=== PATIENT | female | born 1930 | race Caucasian/White ===

== ENCOUNTER 2016-04-28 14:53 | Emergency (ER) | payer MEDICARE, BC ==
[~2016-04-28] VITALS: Ht 152.4 cm; Wt 35.0 kg
[~2016-04-28 14:53] MED LIST: ASPIRIN 81M81 MG/TA2 PO; COLACE 100100 MG/CAP PO; DAZIDOX10 MG PO; FENTANYL 50MCG TD; IMDUR 30MG30 MG/TAB PO; LAMISIL250 M1 PO; LASIX 40MG TABL40 MG PO; MIRALAX PA17 GM/Dose PO; PRINIVIL10 MG PO; SYNTHROID 0.10.15 MG PO; TOPROL XL 50MG50 MG PO; TRIAMCINOLONE A15 GM TP; VIIBRYD40 MG PO; XANAX .25M0.25 MG/TA PO
[2016-04-28 14:55] VITALS: TEMP 98.7
[2016-04-28] MEDS ORDERED: LEXAPRO 10MG10 MG PO (15:14)
[2016-04-28] MEDS ORDERED: PREDNISONE10 MG PO (15:15)
[2016-04-28] MEDS ORDERED: PRILOSEC 20MG20 MG PO (15:18)
[2016-04-28 16:01] LABS: URINE APPEARANCE Hazy; URINE COLOR Yellow
[2016-04-28 16:02] LABS: PH 5 (5-8); URINE GLUCOSE Negative (NEGATIVE); URINE KETONE Negative (NEGATIVE)
[2016-04-28 16:03] LABS: URINE BILIRUBIN Positive (NEGATIVE); URINE BLOOD Negative (NEGATIVE)
[2016-04-28 16:04] LABS: URINE BACTERIA Rare /hpf; URINE WBC 0-2 /hpf
[2016-04-28 16:14] LABS: ADJUSTED CALCIUM 10.1 mg/dL (8.4-10.2); ALBUMIN 4.3 gm/dL (3.5-5.0); BILIRUBIN,TOTAL 0.5 mg/dL (0.0-1.0); CALCIUM 10.3 mg/dL (8.4-10.2); CREATININE, serum 1.05 mg/dL (0.52-1.25); POTASSIUM 4.6 mmol/L (3.4-5.0); TOTAL PROTEIN 7.8 gm/dL (6.4-8.2)
[2016-04-28 16:16] LABS: BASO # 0.1 (0.0-0.2); BASO % 0.4 % (0.0-2.0); EOS % 0.3 % (0-4.0); GRAN # 9.1 (1.4-6.5); GRAN % 80.7 % (42.2-75.2); HEMATOCRIT 41.3 % (37.0-47.0); HEMOGLOBIN 13.6 g/dl (12.5-16.0); LYMPH # 1.2 (1.2-3.4); LYMPH % 10.7 % (20.0-51.0); MEAN CELL VOLUME 96 fl (80.0-100.0); MEAN CORPUSCULAR HEMOGLOBIN 32 pg (27.0-31.0); MEAN CORPUSCULAR HGB CONC 33 g/dl (33.0-37.0); MEAN PLATELET VOLUME 10.8 fl (7.4-10.4); MONO # 0.8 (0.1-0.6); MONO % 7.3 % (1.7-9.3); PLATELET COUNT 384 K/mm3 (130-400); RED BLOOD COUNT 4.32 M/mm3 (4.10-5.30); REDCELL DISTRIBUTION WIDTH-CV 13.6 % (11.5-14.5); WHITE BLOOD COUNT 11.3 K/mm3 (4.8-10.8)
[2016-04-28] MEDS ORDERED: CIPRO 500MG TA500 MG PO (16:23)
[2016-04-28 16:50] VITALS: BP 135/95; PULSE 113
== END 2016-04-28 17:02 | disposition home or self-care (01) ==
LOC: COL.ER 14:53
PROVIDERS: Family Medicine
DX: M54.2 Cervicalgia (principal); N39.0 Urinary tract infection, site not specified; G89.29 Other chronic pain
CPT/HCPCS: J1170; J2550

== ENCOUNTER 2016-05-02 23:44 | Inpatient (IN) | payer MEDICARE, BC ==
[~2016-05-02] VITALS: Ht 152.4 cm; Wt 43.1 kg
[~2016-05-02 23:44] MED LIST changes: +CIPRO 500MG TA500 MG PO; +LEXAPRO 10MG10 MG PO; +PREDNISONE10 MG PO; +PRILOSEC 20MG20 MG PO
[2016-05-03] VITALS (136 sets, daily range): BP systolic 67–137; BP diastolic 32–118; PULSE 55–73; TEMP 97–99.1; O2SAT 44–100
[2016-05-03 01:41] LABS: PH 5 (5-8); URINE APPEARANCE Cloudy; URINE BACTERIA Rare /hpf; URINE BILIRUBIN Negative (NEGATIVE); URINE BLOOD 2+ (NEGATIVE); URINE COLOR Yellow; URINE GLUCOSE Negative (NEGATIVE); URINE KETONE Negative (NEGATIVE); URINE RBC 20-50 /hpf; URINE UROBILINOGEN Negative (NEGATIVE)
[2016-05-03] MEDS ORDERED: NEURONTIN100 MG/CAP PO (02:02)
[2016-05-03 02:04] LABS: BASO % 0.3 % (0.0-2.0); EOS # 0.1 (0.0-0.7); EOS % 1.4 % (0-4.0); LYMPH # 2.2 (1.2-3.4); LYMPH % 24.4 % (20.0-51.0); MEAN CELL VOLUME 100 fl (80.0-100.0); MEAN CORPUSCULAR HGB CONC 32 g/dl (33.0-37.0); MEAN PLATELET VOLUME 10.6 fl (7.4-10.4); MONO # 0.7 (0.1-0.6); MONO % 7.1 % (1.7-9.3); PLATELET COUNT 246 K/mm3 (130-400); RED BLOOD COUNT 2.86 M/mm3 (4.10-5.30); REDCELL DISTRIBUTION WIDTH-CV 14.8 % (11.5-14.5); WHITE BLOOD COUNT 9.1 K/mm3 (4.8-10.8)
[2016-05-03 02:08] LABS: HEMATOCRIT 28.7 % (37.0-47.0); HEMOGLOBIN 9.1 g/dl (12.5-16.0); MEAN CORPUSCULAR HEMOGLOBIN 32 pg (27.0-31.0)
[2016-05-03 02:16] LABS: ALBUMIN 2.7 gm/dL (3.5-5.0); BILIRUBIN,TOTAL 0.5 mg/dL (0.0-1.0); MAGNESIUM 1.6 mg/dL (1.6-2.3); POTASSIUM 4.9 mmol/L (3.4-5.0); TOTAL PROTEIN 5.2 gm/dL (6.4-8.2)
[2016-05-03 02:17] LABS: INR 1.1 (0.8-3.0); PROTHROMBIN TIME 11.9 SECONDS (9.7-12.8)
[2016-05-03 02:20] LABS: PARTIAL THROMBOPLASTIN TIME 26.9 SECONDS (26.0-37.0)
[2016-05-03 02:28] LABS: TROPONIN-I 0.022 ng/mL (0.000-0.034)
[2016-05-03 02:49] LABS: CREATININE, serum 6.07 mg/dL (0.52-1.25)
[2016-05-03 09:40] LABS: ADJUSTED CALCIUM 9.1 mg/dL (8.4-10.2); ALBUMIN 2.7 gm/dL (3.5-5.0); BILIRUBIN,TOTAL 0.5 mg/dL (0.0-1.0); CALCIUM 8.1 mg/dL (8.4-10.2); POTASSIUM 5.1 mmol/L (3.4-5.0); TOTAL PROTEIN 5.4 gm/dL (6.4-8.2)
[2016-05-03 09:47] LABS: CREATININE, serum 6.17 mg/dL (0.52-1.25)
[2016-05-03 12:13] LABS: CREATININE, serum 5.83 mg/dL (0.52-1.25)
[2016-05-03 12:32] LABS: FRACTIONAL EXCRETION OF NA+ 7.1 %
[2016-05-03] MEDS ORDERED: CIPRO 500MG TA500 MG PO (12:57)
[2016-05-04] VITALS (370 sets, daily range): BP systolic 108–142; BP diastolic 43–79; PULSE 62–74; TEMP 97–98.4; O2SAT 44–100
[2016-05-04 05:36] LABS: BASO % 0.4 % (0.0-2.0); EOS # 0.3 (0.0-0.7); EOS % 3.2 % (0-4.0); GRAN % 72.8 % (42.2-75.2); LYMPH # 1.5 (1.2-3.4); LYMPH % 15.1 % (20.0-51.0); MEAN CELL VOLUME 96 fl (80.0-100.0); MEAN CORPUSCULAR HGB CONC 33 g/dl (33.0-37.0); MEAN PLATELET VOLUME 10.8 fl (7.4-10.4); MONO # 0.8 (0.1-0.6); PLATELET COUNT 261 K/mm3 (130-400); RED BLOOD COUNT 2.93 M/mm3 (4.10-5.30); REDCELL DISTRIBUTION WIDTH-CV 14.5 % (11.5-14.5); WHITE BLOOD COUNT 9.7 K/mm3 (4.8-10.8)
[2016-05-04 05:41] LABS: HEMATOCRIT 28.2 % (37.0-47.0); HEMOGLOBIN 9.2 g/dl (12.5-16.0); MEAN CORPUSCULAR HEMOGLOBIN 31 pg (27.0-31.0)
[2016-05-04 05:48] LABS: ADJUSTED CALCIUM 8.3 mg/dL (8.4-10.2); ALBUMIN 2.5 gm/dL (3.5-5.0); BILIRUBIN,TOTAL 0.4 mg/dL (0.0-1.0); CALCIUM 7.1 mg/dL (8.4-10.2); MAGNESIUM 1.8 mg/dL (1.6-2.3); POTASSIUM 4.6 mmol/L (3.4-5.0)
[2016-05-04 06:29] LABS: CREATININE, serum 4.15 mg/dL (0.52-1.25)
[2016-05-05 03:36] VITALS: BP 151/48; PULSE 104; TEMP 98.2
[2016-05-05 07:02] LABS: BASO % 0.6 % (0.0-2.0); EOS # 0.3 (0.0-0.7); EOS % 4.8 % (0-4.0); GRAN # 4.9 (1.4-6.5); GRAN % 68.8 % (42.2-75.2); LYMPH # 1.1 (1.2-3.4); LYMPH % 15.8 % (20.0-51.0); MEAN CELL VOLUME 98 fl (80.0-100.0); MEAN CORPUSCULAR HGB CONC 33 g/dl (33.0-37.0); MEAN PLATELET VOLUME 11.3 fl (7.4-10.4); MONO # 0.7 (0.1-0.6); MONO % 9.7 % (1.7-9.3); PLATELET COUNT 201 K/mm3 (130-400); RED BLOOD COUNT 2.74 M/mm3 (4.10-5.30); REDCELL DISTRIBUTION WIDTH-CV 14.3 % (11.5-14.5)
[2016-05-05 07:11] LABS: HEMATOCRIT 26.8 % (37.0-47.0); HEMOGLOBIN 8.8 g/dl (12.5-16.0); MEAN CORPUSCULAR HEMOGLOBIN 32 pg (27.0-31.0)
[2016-05-05 07:26] LABS: CALCIUM 7.5 mg/dL (8.4-10.2); CREATININE, serum 2.59 mg/dL (0.52-1.25); POTASSIUM 3.5 mmol/L (3.4-5.0)
[2016-05-05 08:11] VITALS: BP 175/50; PULSE 65; TEMP 97.9
[2016-05-05 12:22] VITALS: BP 156/52; PULSE 65; TEMP 98.3
[2016-05-05 15:51] VITALS: BP 150/56; PULSE 66; TEMP 98.3
[2016-05-05 19:37] VITALS: BP 142/54; PULSE 60; TEMP 97.9
[2016-05-05 23:53] VITALS: BP 139/55; PULSE 65; TEMP 98.1
[2016-05-06 04:15] VITALS: BP 167/55; PULSE 62; TEMP 98.4
[2016-05-06 06:48] LABS: BASO % 0.6 % (0.0-2.0); EOS # 0.2 (0.0-0.7); EOS % 2.8 % (0-4.0); GRAN # 5.3 (1.4-6.5); GRAN % 74.6 % (42.2-75.2); LYMPH # 0.9 (1.2-3.4); MEAN CELL VOLUME 98 fl (80.0-100.0); MEAN CORPUSCULAR HGB CONC 32 g/dl (33.0-37.0); MEAN PLATELET VOLUME 10.7 fl (7.4-10.4); MONO # 0.6 (0.1-0.6); MONO % 8.4 % (1.7-9.3); PLATELET COUNT 205 K/mm3 (130-400); RED BLOOD COUNT 2.78 M/mm3 (4.10-5.30); WHITE BLOOD COUNT 7.1 K/mm3 (4.8-10.8)
[2016-05-06 06:51] LABS: HEMATOCRIT 27.3 % (37.0-47.0); HEMOGLOBIN 8.8 g/dl (12.5-16.0); MEAN CORPUSCULAR HEMOGLOBIN 32 pg (27.0-31.0)
[2016-05-06 07:12] LABS: CALCIUM 8.1 mg/dL (8.4-10.2); CREATININE, serum 2.14 mg/dL (0.52-1.25); POTASSIUM 3.4 mmol/L (3.4-5.0)
[2016-05-06 07:42] VITALS: BP 150/41; PULSE 64; TEMP 97.5
[2016-05-06 11:37] VITALS: BP 154/49; PULSE 61; TEMP 98.3
[2016-05-06] MEDS ORDERED: NORVASC 5MG5 MG/TAB PO (12:45)
[2016-05-06] MEDS ORDERED: ASPIRIN E.C. 8181 MG PO (12:46)
[2016-05-06] MEDS ORDERED: LIDODERM 5% PATC1 EA TP (12:48)
[2016-05-06] MEDS ORDERED: CEFTIN500 MG PO (12:50)
[2016-05-06 15:59] VITALS: BP 151/51; PULSE 60; TEMP 98.4
[2016-05-06 21:24] VITALS: BP 156/54; PULSE 57; TEMP 98.7
[2016-05-07 00:53] VITALS: BP 178/53; PULSE 64; TEMP 98
[2016-05-07 05:30] VITALS: BP 179/54; PULSE 64; TEMP 98.4
[2016-05-07 08:30] VITALS: BP 150/53; PULSE 58; TEMP 98.7
[2016-05-07 10:03] VITALS: BP 150/53; PULSE 58; TEMP 98.7
== END 2016-05-07 11:05 | DRG 682 ==
LOC: ICU 23:44 → MEDICAL 05-04 11:57
PROVIDERS: Family Medicine; Nurse Practitioner Family
PROC: 02HV33Z Insertion of Infusion Device into Superior Vena Cava, Percutaneous Approach (ICD-10-PCS; principal; 2016-05-03)
DX: N17.9 Acute kidney failure, unspecified (principal); E43 Unspecified severe protein-calorie malnutrition; N39.0 Urinary tract infection, site not specified; Z68.1 Body mass index [BMI] 19.9 or less, adult; E87.2 Acidosis; Z66 Do not resuscitate; E87.5 Hyperkalemia; I25.10 Atherosclerotic heart disease of native coronary artery without angina pectoris; Z95.0 Presence of cardiac pacemaker; Z95.1 Presence of aortocoronary bypass graft; E86.0 Dehydration; E16.2 Hypoglycemia, unspecified
CPT/HCPCS: 99223-AI; 99232-AI; 99233-AI; 99239; C1751; J0610; J0696; J1644; J1815; J2405; J3475; J7030; J7060